=== PATIENT | female | born 1990 | race Two or more races ===

== ENCOUNTER 2020-10-18 11:19 | Emergency (ER) | payer SELFPAY ==
[~2020-10-18] VITALS: Ht 160 cm; Wt 64.9 kg
--- NOTE | 2020-10-18 11:35 | NUR ---
BIB [facility],ANXIETY ATTACK ON HER WAY TO EAT OUT,HYPERVENTILATING/CARPAL SPASM UPON EMS ARRIVAL. THE PATIENT IS IN ER BED #11. DENIES PAIN. IN ROOM AIR AND DENIES SOB. RESPIRATION REGULAR AND UNLABORED. WARM BLANKET PROVIDED FOR COMFORT. WILL CONTINUE TO MONITOR THE PATIENT.
[2020-10-18] MEDS ORDERED: METOCLOPRAMIDE HCL 10 MG/2 ML VIAL ONE (11:47)
[2020-10-18] MEDS ORDERED: FAMOTIDINE/PF INJ 20 MG/2 ML VIAL IV ONE ×2 (11:48→12:00)
[2020-10-18] MEDS ORDERED: METOCLOPRAMIDE HCL 10 MG/2 ML VIAL IV ONE (12:00)
[2020-10-18] MEDS ORDERED: IV NS 0.9% 1,000 ML BAG IV ONE (12:00)
[2020-10-18 12:01] LABS: CALCIUM, SERUM 8.7 mg/dL (8.5-10.1); CREATININE 0.7 mg/dL (0.6-1.3); POTASSIUM 2.9 mmol/L (3.5-5.1)
[2020-10-18 12:04] LABS: BASOPHILS % (AUTO) 0.1 % (0.0-2.0); EOSINOPHILS % (AUTO) 0.1 % (0.0-6.0); HEMATOCRIT 37 % (33-45); HEMOGLOBIN 12.5 g/dL (11.5-14.8); LYMPHOCYTES # (AUTO) 1.2 /CMM (0.8-4.8); LYMPHOCYTES % (AUTO) 13.9 % (20.0-44.0); MEAN CORPUSCULAR HGB CONC 34 g/dl (31.0-36.0); MEAN CORPUSCULAR VOLUME 85 fL (82-100); MONOCYTES # (AUTO) 0.4 /CMM (0.1-1.30); MONOCYTES % (AUTO) 4.4 % (2.0-12.0); NEUTROPHILS # (AUTO) 7.3 /CMM (1.8-8.9); NEUTROPHILS % (AUTO) 81.5 % (43.0-81.0); PLATELET COUNT (AUTO) 286 /CMM (150-450); RED BLOOD CELL COUNT(AUTO) 4.37 MIL/uL (4.0-5.2)
[2020-10-18 12:07] LABS: ALBUMIN 4.2 g/dL (3.4-5.0); BILIRUBIN,DIRECT 0.1 mg/dL (0.0-0.2); BILIRUBIN,TOTAL 0.3 mg/dL (0.2-1.0); TOTAL PROTEIN, SERUM 7.8 g/dL (6.4-8.2)
--- NOTE | 2020-10-18 12:15 | NUR ---
ATTEMPTED EKG AND PATIENT VERBALLY REFUSED TREATMENT. NOTIFIED RN AND DOCTOR.
--- NOTE | 2020-10-18 12:20 | NUR ---
The patient refused ECG despite explaining risks and benefits.
--- NOTE | 2020-10-18 12:21 | NUR ---
Patient does not wish to proceed with medical care recommended by Dr. Walker. Patient given information related to possible complications, up to and including , which could occur as a result of leaving the hospital at this time. Patient verbalizes understanding of risks involved due to leaving against medical advice. Patient has signed AMA form.
[2020-10-18] MEDS ORDERED: POTASSIUM CHLORIDE 20 MEQ TAB.PRT.SR PO ONE (12:30)
[2020-10-18 12:32] VITALS: BP 107/88
[2020-10-18 13:55] LABS: MAGNESIUM 1.9 mg/dL (1.8-2.4)
== END 2020-10-18 12:32 | disposition left against medical advice (07) ==
LOC: ER 11:24
DX: F41.9 Anxiety disorder, unspecified (principal); R11.10 Vomiting, unspecified; E87.6 Hypokalemia; F10.10 Alcohol abuse, uncomplicated; Y90.0 Blood alcohol level of less than 20 mg/100 ml
CPT/HCPCS: 36415; 80048; 80076; 80320; 83690; 83735; 84484; 85025; 96361; 96374; 96375; 99284; J2765; J3490; J7030; G0480